=== PATIENT | male | born 1995 | race Caucasian/White ===

== ENCOUNTER 2018-07-07 02:40 | Emergency (ER) | payer SELFPAY ==
[~2018-07-07] VITALS: Ht 188 cm; Wt 90.9 kg
[2018-07-07 02:48] VITALS: TEMP 98.9
[2018-07-07 04:25] VITALS: BP 135/83; PULSE 106
== END 2018-07-07 04:26 | disposition home or self-care (01) ==
LOC: COL.ER 02:40
DX: S46.222A Laceration of muscle, fascia and tendon of other parts of biceps, left arm, initial encounter (principal); S51.012A Laceration without foreign body of left elbow, initial encounter; W13.4XXA Fall from, out of or through window, initial encounter; W01.110A Fall on same level from slipping, tripping and stumbling with subsequent striking against sharp glass, initial encounter
CPT/HCPCS: J7030